=== PATIENT | female | born 1995 | race American Indian/Alaskan Native ===

== ENCOUNTER 2017-12-14 19:53 | Emergency (ER) | payer SELFPAY ==
[2017-12-14 19:59] VITALS: BP 133/72
[2017-12-14 20:25] LABS: Bilirubin,Urine SM (Negative); Blood,Urine MOD (Negative); Color,Urine Amber (Yellow); Hyaline Casts,Urine 3 /LPF; Mucus,Urine 3+ /HPF
[2017-12-14 20:46] LABS: HCG Qualitative,Urine Negative (Negative); Ictotest,Urine Negative (Negative)
--- NOTE | 2017-12-14 23:26 | Emergency Department Report ---
ED Female HPI - General Chief complaint: Urogenital-Female Stated complaint: PELVIC PAIN, BLEEDING Time Seen by Provider: 12/14/17 23:09 Source: patient Mode of arrival: Ambulatory Limitations: No Limitations - History of Present Illness Initial comments: 22-year-old -[place] female comes in complaint of pelvic pain, vaginal discharge in vaginal bleeding. Patient reports that she has had her period once this month and it had stopped and then her period has come back. Patient reports that she was seen by her [facility] provider in [place] and completed a course of Flagyl. Patient reports when she got up morning blood started pouring down her leg. Patient reports she is sexually active with men one partner in the last 6 months unprotected. 2 para 1. No fever no chills no nausea no vomiting. Pelvic pain 1 week. Last took pain medication was ibuprofen 2 days ago reports he did not help. No past medical history currently takes no medication and has allergy to amoxicillin results or rash. MD Complaint: vaginal bleeding, vaginal discharge, pelvic pain -: week(s) (1) Location: suprapubic Radiation: non-radiating Severity: moderate Severity scale (0 -10): 5 Quality: cramping Consistency: constant Improves with: none Worsens with: none Are you Now?: No Associated Symptoms: vaginal discharge, vaginal bleeding, abdominal pain. denies: nausea/vomiting, fever/chills, headaches, dysuria, hematuria, rash, seizure, shortness of breath - Related Data Sexually active: Yes : 2 Para: 1 A: 1 Previous Rx's Medication Instructions Recorded Last Taken Type Azithromycin [Zithromax Z-KVNG] 250 mg PO DAILY #6 tablet 04/01/14 Unknown Rx HYDROcodone/APAP 5-325 [Mylo 1 each PO Q6HR PRN #14 tablet 04/01/14 Unknown Rx 5/325] Ibuprofen [Motrin 800 MG tab] 800 mg PO Q8H #30 tablet 04/01/14 Unknown Rx Sulfamethoxazole/Trimethoprim 1 each PO BID #20 tablet 04/01/14 Unknown Rx [Bactrim Ds] Ibuprofen [Motrin 800 MG tab] 800 mg PO Q8H PRN #30 tablet 12/14/17 Unknown Rx metroNIDAZOLE 0.75%(NF) [Metrogel 1 applicatio TP BID 5 Days #1 tube 12/15/17 Unknown Rx 0.75% TOPICAL] Allergies Allergy/AdvReac Type Severity Reaction Status Date / Time amoxicillin [Amoxicillin] Allergy Rash Verified 12/14/17 19:56 ED Review of Systems ROS: Stated complaint: PELVIC PAIN, BLEEDING Other details as noted in HPI Constitutional: denies: chills, fever Eyes: denies: eye pain, eye discharge, vision change ENT: denies: ear pain, throat pain Respiratory: denies: cough, shortness of breath, wheezing Cardiovascular: denies: chest pain, palpitations Endocrine: no symptoms reported Genitourinary: discharge, dyspareunia, other (vaginal bleeding, pelvic pain) Musculoskeletal: denies: back pain, joint swelling, arthralgia Skin: denies: rash, lesions Neurological: denies: headache, weakness, paresthesias Psychiatric: denies: anxiety, depression Hematological/Lymphatic: denies: easy bleeding, easy bruising ED Past Medical Hx - Past Medical History Previous Medical History?: No - Surgical History Past Surgical History?: No - Social History Smoking Status: Never Smoker Substance Use Type: Alcohol - Medications Home Medications: Home Medications Medication Instructions Recorded Confirmed Last Taken Type Azithromycin [Zithromax Z-KVNG] 250 mg PO DAILY #6 tablet 04/01/14 Unknown Rx HYDROcodone/APAP 5-325 [Mylo 1 each PO Q6HR PRN #14 tablet 04/01/14 Unknown Rx 5/325] Ibuprofen [Motrin 800 MG tab] 800 mg PO Q8H #30 tablet 04/01/14 Unknown Rx Sulfamethoxazole/Trimethoprim 1 each PO BID #20 tablet 04/01/14 Unknown Rx [Bactrim Ds] Ibuprofen [Motrin 800 MG tab] 800 mg PO Q8H PRN #30 tablet 12/14/17 Unknown Rx metroNIDAZOLE 0.75%(NF) [Metrogel 1 applicatio TP BID 5 Days #1 tube 12/15/17 Unknown Rx 0.75% TOPICAL] ED Physical Exam - General Limitations: No Limitations General appearance: alert, in no apparent distress - Head Head exam: Present: atraumatic, normocephalic - Eye Eye exam: Present: normal appearance - ENT ENT exam: Present: mucous membranes moist - Neck Neck exam: Present: normal inspection, full ROM - Cardiovascular Cardiovascular Exam: Present: regular rate, normal rhythm. Absent: systolic murmur, diastolic murmur, rubs, gallop - GI/Abdominal GI/Abdominal exam: Present: soft, normal bowel sounds - External exam: Present: normal external exam Speculum exam: Present: vaginal bleeding Bi-manual exam: Present: normal bi-manual exam. Absent: cervical motion tendernes, adnexal tenderness, adnexal mass - Extremities Exam Extremities exam: Present: normal inspection - Back Exam Back exam: Present: normal inspection - Neurological Exam Neurological exam: Present: alert, oriented X3 - Psychiatric Psychiatric exam: Present: normal affect, normal mood - Skin Skin exam: Present: warm, dry, intact, normal color. Absent: rash ED Course Vital Signs 12/14/17 19:56 Temperature 97.6 F Pulse Rate 94 H Respiratory 20 Rate Blood Pressure 133/72 O2 Sat by Pulse 99 Oximetry ED Medical Decision Making - Medical Decision Making Patient's been evaluated by this provider fast track. I discussed the patient we'll do a female exam sent out wet prep as well as Chlamydia and gonorrhea cultures. Discussed the patient that I will order ibuprofen for pain. She would like to get treated for gonorrhea and chlamydia. I ordered Rocephin 250 mg IM as well as a Zithromax and 1 g. Patient is just repeated a course of Flagyl for 7 days. Discussed the patient she can return back to the hospital to medical records to obtain her results of her admitting and gonorrhea testing if she wishes. Discussed the patient she she'll use condoms for protection discussed the patient she needs to follow-up with her [facility]NAGER. To be evaluated for dysfunctional uterine bleeding. Discussed the patient she can take ibuprofen or Tylenol for pelvic pain. Patient verbalized understanding. Critical care attestation.: If time is entered above; I have spent that time in minutes in the direct care of this critically ill patient, excluding procedure time. ED Disposition Clinical Impression: Pelvic pain, Vaginal discharge, Vaginal bleeding, BV (bacterial vaginosis) Disposition: DC-01 TO HOME OR SELFCARE Is pt being admited?: No Does the pt Need Aspirin: No Condition: Stable Instructions: Sexually Transmitted Diseases (ED), Safe Sex (ED), Bacterial Vaginosis (ED) Additional Instructions: Please inform her sexual partner that he had been treated for STDs. Please refrain from intercourse until your partner has been tested for STDs. Please follow-up with her [facility] MANAGER for evaluation of bleeding. Please take pain medication as prescribed for pain. Prescriptions: Ibuprofen [Motrin 800 MG tab] 800 mg PO Q8H PRN #30 tablet PRN Reason: Pain metroNIDAZOLE 0.75%(NF) [Metrogel 0.75% TOPICAL] 1 applicatio TP BID 5 Days #1 tube Referrals: [facility] [Other] - 3-5 Days Forms: Accompanied Note, Work/School Release Form(ED), STI Treatment and Prevention
[2017-12-14] MEDS ORDERED: MOTRIN PO ONE (23:38)
[2017-12-14] MEDS ORDERED: ROCEPHIN IM ONE (23:38)
[2017-12-14] MEDS ORDERED: ZITHROMAX PO ONE (23:38)
[2017-12-14] MEDS ORDERED: XYLOCAINE 1% MPF 5 mL INFILTRATI ONE (23:38)
== END 2017-12-15 00:30 | disposition home or self-care (01) ==
LOC: ED 19:53
DX: N76.0 Acute vaginitis (principal); B96.89 Other specified bacterial agents as the cause of diseases classified elsewhere; Z88.1 Allergy status to other antibiotic agents
CPT/HCPCS: 81001; 81025; 87210; 87591; 96372; 99284; J0696